=== PATIENT | female | born 1965 | race Caucasian/White ===

== ENCOUNTER 2023-10-20 15:22 | Emergency (ER) | payer OTHER ==
[~2023-10-20] VITALS: Ht 157.5 cm; Wt 99.8 kg
[2023-10-20 15:54] VITALS: BP 118/59; PULSE 69; RESP 18; TEMP 97.2; O2SAT 95
[2023-10-20] MEDS ORDERED: LACT-191 PO (17:41)
[2023-10-20 17:48] VITALS: BP 120/72; PULSE 72; RESP 18; TEMP 97.7; O2SAT 97
== END 2023-10-20 17:48 | disposition home or self-care (01) ==
LOC: MED 15:22
DX: K59.00 Constipation, unspecified (principal); K62.5 Hemorrhage of anus and rectum; I10 Essential (primary) hypertension; E11.9 Type 2 diabetes mellitus without complications; F41.9 Anxiety disorder, unspecified; Z90.49 Acquired absence of other specified parts of digestive tract; Z90.710 Acquired absence of both cervix and uterus; Z79.899 Other long term (current) drug therapy
CPT/HCPCS: 99283

== ENCOUNTER 2024-02-10 20:57 | Emergency (ER) | payer OTHER ==
[~2024-02-10] VITALS: Ht 157.5 cm; Wt 107.5 kg
[~2024-02-10 20:57] MED LIST: LACT-191 PO
[2024-02-10 21:03] VITALS: BP 131/66; PULSE 81; RESP 18; TEMP 98.2; O2SAT 95
== END 2024-02-10 23:30 | disposition home or self-care (01) ==
LOC: MED 20:57
DX: M25.561 Pain in right knee (principal); M25.562 Pain in left knee; E11.9 Type 2 diabetes mellitus without complications; Z79.899 Other long term (current) drug therapy; W01.0XXA Fall on same level from slipping, tripping and stumbling without subsequent striking against object, initial encounter; Y93.89 Activity, other specified; Y92.512 Supermarket, store or market as the place of occurrence of the external cause; Y99.8 Other external cause status
CPT/HCPCS: 73564; 99283

== ENCOUNTER 2024-02-15 08:12 | Emergency (ER) | payer OTHER ==
[~2024-02-15] VITALS: Ht 152.4 cm; Wt 108.5 kg
[2024-02-15 08:23] VITALS: BP 123/92; PULSE 78; RESP 17; TEMP 97.7; O2SAT 98
== END 2024-02-15 08:44 | disposition left against medical advice (07) ==
LOC: MED 08:12
DX: M25.511 Pain in right shoulder (principal); Z53.21 Procedure and treatment not carried out due to patient leaving prior to being seen by health care provider